=== PATIENT | female | born 1935 | race Two or more races ===

== ENCOUNTER 2016-09-14 14:49 | Emergency (ER) | payer OTHER ==
[~2016-09-14] VITALS: Ht 157.5 cm; Wt 59.0 kg
[2016-09-14 15:17] VITALS: BP 130/68
--- NOTE | 2016-09-14 15:41 | Emergency Room Report ---
History of Present Illness General Chief Complaint: Upper Extremity Injury Source: Patient (Jessica Zamora) Present Illness HPI 81-year-old female presents to emergency Department complaining of pain, tenderness, bruising and mild swelling to the left upper arm status post mechanical trip and fall 5 days ago. Patient denies hitting her head she denies loss of consciousness. Patient rates her pain as 8/10 in severity nonradiating exacerbated upon palpation. Denies numbness tingling or loss of sensation or gross motor movements of the extremities, incontinence of bowel or bladder. Denies CP, Palpitations, LOC, AMS, dizziness, Changes in Vision, Sensation, paresthesias, or a sudden severe headache. (Jessica Zamora) Allergies: Coded Allergies: PENICILLINS (Verified Allergy, Unknown, 09/14/16) Patient History Past Medical History: see triage record Past Surgical History: none Pertinent Family History: none Now: No Immunizations: UTD Reviewed Nursing Documentation: PMH: Agreed, PSxH: Agreed (Jessica Zamora) Nursing Documentation-PMH Past Medical History: No Stated History (Jessica Zamora) Review of Systems All Other Systems: negative except mentioned in HPI (Jessica Zamora) Physical Exam Vital Signs Date Time Temp Pulse Resp B/P Pulse Ox O2 Delivery O2 Flow Rate FiO2 09/14/16 15:08 98.8 71 15 132/69 95 Room Air Sp02 EP Interpretation: reviewed, normal General Appearance: no apparent distress, alert, GCS 15, non-toxic Head: normocephalic, atraumatic Eyes: bilateral eye PERRL, bilateral eye normal inspection ENT: hearing grossly normal, normal pharynx, no angioedema, normal voice Neck: full range of motion, supple/symm/no masses Respiratory: chest non-tender, lungs clear, normal breath sounds, speaking full sentences Cardiovascular #1: regular rate, rhythm, no edema Cardiovascular #2: 2+ radial (R), 2+ radial (L) Gastrointestinal: normal bowel sounds, non tender, soft, no guarding, no rebound Rectal: deferred Genitourinary: normal inspection, no CVA tenderness Musculoskeletal: back normal, gait/station normal, normal range of motion, no calf tenderness, swelling - left lateral humerus swelling. , tender - lateral left humerus TTP, bruising Neurologic: alert, oriented x3, responsive, motor strength/tone normal, sensory intact, speech normal Psychiatric: judgement/insight normal, memory normal, mood/affect normal, no suicidal/homicidal ideation Skin: normal color, no rash, warm/dry, well hydrated Lymphatic: no adenopathy (Jessica Zamora) Medical Decision Making [place] Attestation Dr. perez is my supervising Physician whom patient management has been discussed with. (Jessica Zamora) Medicare Attestation The history of Chichi Zarate has been reviewed and management options for her have been examined and discussed by Yoel Khoury. I have personally examined and interviewed the patient. (YOEL KHOURY M.D.) Diagnostic Impression: Primary Impression: Fracture, humerus closed, shaft Qualified Codes: S42.345A - Nondisplaced spiral fracture of shaft of humerus, left arm, initial encounter for closed fracture ER Course Pt. presents to the ED c/o of upper arm pain status post mechanical slip and fall 5 days ago bruising and tenderness to palpation. Ddx considered but are not limited to Fracture, dislocation, contusion, Sprain/ Strain/Spasm, Epidural abscess, Neoplastic mets. Vital signs: are WNL, pt. is afebrile H&PE are most consistent with possible fracture Will rule out with imaging. ORDERS: - X-ray left humerus 2 views - negative for fx, Dislocation, or significant soft tissue injury, per preliminary read in ED by Dr. Khoury ED INTERVENTIONS: - Tylenol #3 PO - Left shoulder immobilizer applied by marketing technology coordinator. Pt. remains neurovascularly intact. DISCHARGE: At this time pt. is stable for d/c to home. Will provide printed patient care instructions, and any necessary prescriptions. Care plan and follow up instructions have been discussed with the patient prior to discharge. (Jessica Zamora) Last Vital Signs Date Time Temp Pulse Resp B/P Pulse Ox O2 Delivery O2 Flow Rate FiO2 09/14/16 15:17 98.0 72 17 130/68 96 Room Air (Jessica Zamora.ANing) Disposition: HOME, SELF-CARE Condition: Stable Scripts Acetaminophen With Codeine (T#3) (TYLENOL #3 TAB*) Y Tab 1 TAB ORAL Q6HR Y for For Pain, #15 TAB Prov: Jessica Zamora 09/14/16 Patient Instructions: FRACTURE, Upper Extremity Additional Instructions: Take medications as directed. Follow up with PCP in 3-5 days Return sooner to ED if new symptoms occur, or current symptoms become worse. Do not drink alcohol, drive, or operate heavy machinery while taking Tylenol # 3 as this may cause drowsiness. Jessica Zamora Sep 14, 2016 15:41 YOEL KHOURY M.D. Sep 17, 2016 05:30
[2016-09-14] MEDS ORDERED: ACETAMINOPHEN-1 EAC1 ORAL (16:28)
[2016-09-14] MEDS ORDERED: Tylenol #3 tab (300mg/30mg) ORAL ONE (16:30)
[2016-09-14 16:44] VITALS: BP 134/62
--- NOTE | 2016-09-17 10:29 | Diagnostic Imaging Report ---
Indications: PAIN Technique: Two views of the left humerus Comparison: None Findings: There is a spiral fracture of the proximal to mid humeral shaft. This is displaced by about one half bone width. No other acute fractures. No dislocations. Bones appear demineralized. Impression: Positive for humeral shaft fracture Findings were discussed previously with Dr. Sen in the emergency room
== END 2016-09-14 16:44 | disposition home or self-care (01) ==
LOC: EMR 16:04
DX: S42.302A Unspecified fracture of shaft of humerus, left arm, initial encounter for closed fracture (principal); W01.0XXA Fall on same level from slipping, tripping and stumbling without subsequent striking against object, initial encounter; Y93.9 Activity, unspecified; Y92.9 Unspecified place or not applicable; Y99.9 Unspecified external cause status; M79.622 Pain in left upper arm; Z88.0 Allergy status to penicillin
CPT/HCPCS: 99283